=== PATIENT | male | born 1995 | race Caucasian/White ===

== ENCOUNTER 2018-11-03 09:56 | Outpatient (REF) | payer BC, SELFPAY ==
--- NOTE | 2018-11-03 08:45 | SOFT_PTH ---
PATIENT: Kayden Saha LOC: [facility] U#:[id number] AGE/SX: 23/M ROOM: RE11/03/[address]: Mae Ramsey MD : 1995 BED: DIS: 11/03/2018 SPEC #: [id number] RECD: 11/03/18 12:54 STATUS: SISI REQ #: [id number] PARVEZ: 11/03/18 08:[address]: Mae Ramsey DEPT: Surgical Specimen RECD BY: Vickie Pack ENTERED: 11/03/18 12:55 SP TYPE: SOFT OTHR DR: Evelyn Bryan Tissues: 1 - SOFT TISSUE MISC (INC. LIPOMA) 2 - SOFT TISSUE MISC (INC. LIPOMA) Procedures: GROSS AND MICRO LEVEL 3 Comments: [id number]
== END 2018-11-03 10:16 ==
LOC: LBN 09:56
PROVIDERS: PCP Nurse Practitioner Family; Visit Provider Surgery
DX: D17.1 Benign lipomatous neoplasm of skin and subcutaneous tissue of trunk (principal)
CPT/HCPCS: 88304

== ENCOUNTER 2021-11-11 17:13 | Outpatient (REF) | payer SELFPAY ==
[2021-11-11 19:39] LABS: Anion Gap 10.4 mmol/L (3-11); BUN 18 mg/dL (7-18); CO2 27.6 mmol/L (21.0-32.0); CREATININE 1.1 mg/dL (0.70-1.30); Calcium 9.1 mg/dL (8.5-10.1); Calculated LDL 123 mg/dL (<100); Chloride 102 mmol/L (98-107); Cholesterol 234 mg/dL (<200); Glucose 107 mg/dL (74-106); HDL Cholesterol 32 mg/dL (40-60); Potassium 4.3 mmol/L (3.5-5.1); Sodium 140 mmol/L (136-145); TSH (W/Ref FT4) 1.78 uIU/mL (0.36-3.74); Triglyceride 396 mg/dL (<150)
== END 2021-11-11 17:14 | disposition home or self-care (01) ==
LOC: NCHCN 17:13
PROVIDERS: PCP Nurse Practitioner Family; Visit Provider Nurse Practitioner Family
DX: K30 Functional dyspepsia (principal)
CPT/HCPCS: 80048; 80061; 84443

== ENCOUNTER 2022-05-18 00:52 | Emergency (ER) | payer BC, SELFPAY ==
[2022-05-18] VITALS (45 sets, daily range): BP systolic 107–134; BP diastolic 58–80; PULSE 46–74; RESP 10–26; TEMP 36.8; O2SAT 91–100
--- NOTE | 2022-05-18 01:15 | RT.EKG_ITS ---
APPROVED REPORT Exam: Resting ECG Reason for Exam: chest pain Patient Location: E HR:59 bpm ECG Measurements Heart Rate 59 AXIS NJ 156 P 21 QRSd 91 QRS 16 QT 376 T 34 QTc 374 Conclusion Bradycardia with irregular rate...V-rate 51-197, mean < 60 sinus rhythm, normal axis, normal intervals, nonischemic
--- NOTE | 2022-05-18 01:15 | DI.RAD_ITS ---
Exam(s) XR PORTABLE CHEST AP EXAM: XR PORTABLE CHEST AP CLINICAL HISTORY: left sided chest pain TECHNIQUE: 2D digital imaging was performed of the chest. One image was obtained. An AP view was ob tained. COMPARISON: CR CHEST 2 VIEWS PA,LAT from 08/10/2017 FINDINGS: MEDIASTINUM: Normal. HEART: Normal. PULMONARY VASCULATURE: Normal. LUNGS: Clear. PLEURAL SPACE: No pleural effusion or pneumothorax. BONE:Within normal limits for the patient's age. OTHER FINDINGS:Normal. IMPRESSION: No acute pulmonary findings. DATA REPOSITORY: RADIATION DOSE DELIVERED:
--- NOTE | 2022-05-18 01:39 | ED.GENADUL_ITS ---
Discharge Plan Disposition Patient Disposition: HOME Condition: Improving Discharge Details Chief Complaint: SOB Clinical Impression: Chest pain Primary Care Provider: Evelyn Bryan ED Provider: Miko Celestin Home Meds and New Rx's Prescriptions: No Action lactase [Lactaid] 3,000 unit tablet 3,000 unit PO ONCE PRN Rx Instructions: administer with meals and/or snacks famotidine 40 mg tablet 40 mg PO DAILY Discharge Instructions Instructions: Chest Pain (ED) Additional Instructions: Please follow-up with your primary care physician. Please return to the emergency department if you develop any worsening symptoms. Medical Decision Making 27-year-old male no past medical history, low risk heart score, PERC negative, presents with nonexertional left anterior chest pain intermittent nature over the past several hours, associated with subjective shortness of breath, no history of COPD or asthma, no history of thromboembolic phenomenon or coronary artery disease, no recent travel. Lungs clear bilaterally EKG nonischemic normotensive normoxic. Does endorse increased stress around planning an upcoming wedding and around the passing of his uncle from a heart attack at a young age at this facility. No acute distress at this time. Will obtain screening labs cardiac labs, EKG chest x-ray, will trial anxiolysis and GI cocktail. Consider musculoskeletal chest pain versus anxiety versus less likely ACS versus unlikely PE pneumothorax or pneumonia. Disposition likely home with close follow-up pending results and reassessment. 5: 28 patient resting comfortably no acute distress. Feeling better after meds. Labs and imaging unremarkable. Patient has follow-up with primary care physician. Given home care instructions and return precautions. HPI General Date/Time Provider Initiated Documentation: 05/18/22 00:53 . HPI Narrative: 27-year-old male presents with left anterior chest pain over the past several hours, pressure-like in nature, intermittent, nonexertional, denies history of coronary disease or thromboembolic phenomenon in the past. Denies cough fevers chills nausea vomiting leg swelling recent travel or recent surgery. Of note patient endorses increased stress as he is planning a wedding, also continue stress around the of his uncle who at a young age from a heart attack. Related Data Home Medications Medication Instructions Recorded Confirmed famotidine 40 mg tablet 40 mg PO DAILY 12/23/21 05/18/22 lactase 3,000 unit tablet (Lactaid) 3,000 unit PO ONCE PRN 01/20/22 05/18/22 Allergies Allergy/AdvReac Type Severity Reaction Status Date / Time lactose Allergy Unknown Verified 05/18/22 01:54 General Stated Complaint: SOB DARRIN: 3 Review of Systems Narrative: Review of Systems Constitutional: negative Eyes: negative ENT: negative Cardiovascular: Chest pain Respiratory: negative Gastrointestinal: negative : negative Musculoskeletal: negative Skin: negative Neurologic: negative Psych: negative PFSH All Active Problems (Updated 05/18/22 @ 05:29 by Miko Celestin MD) Chest pain (Acute) Gastroesophageal reflux disease (Chronic 05/31/12) Obesity (Chronic) Testicular pain, right (Acute) Left testicular pain (Acute) Hydrocele (Acute) Skin lesion (Acute) Mass of abdomen (Chronic) Dyspepsia (Chronic) Hypopigmented skin lesion (Acute 08/09/14) left lower lip Medical History Headache (05/31/12) Rupture of anterior cruciate ligament (05/31/12) Social History Smoking/Tobacco Use Status: Never Smoking risk assessment performed?: Yes Alcohol Intake: current Alcohol Intake frequency: holidays/special occasions only Drug use: Never Do you feel safe at home: Yes Do you feel safe in your relationship?: Yes Exam Narrative Exam Narrative: Physical Examination General: alert, awake, cooperative, resting comfortably, no acute distress HEENT: normocephalic, atraumatic; PERRL, EOM intact, conjunctiva normal; no nasal discharge; moist mucous membranes, oral and pharyngeal mucosa normal, tolerating secretions Neck: supple, trachea midline; full ROM Chest: normal to inspection Respiratory: normal respiratory effort, speaking in full sentences, clear to auscultation, no wheezing, rales or rhonchi Cardiac: regular rate, regular rhythm, S1S2 intact, no murmurs rubs or gallops GI: abdomen soft, non-tender, non-distended; no palpable mass or hepatosplenomegaly Skin: no lesions, rashes or trauma appreciated Neuro: AAOx3, normal speech, moving all extremities Extremities: No peripheral edema Psych: Appropriate mood and affect Course Vital Signs Vital signs: Vital Signs Temperature 36.8 C 05/18/22 01:16 Pulse 66 05/18/22 01:16 Respiratory Rate 18 05/18/22 01:16 Blood Pressure 134/69 05/18/22 01:16 Pulse Oximetry 100 05/18/22 01:16 Temperature 36.8 C 05/18/22 01:16 Temperature Source Temporal Artery Scan 05/18/22 01:16 Pulse 66 05/18/22 01:16 Respiratory Rate 16 05/18/22 01:31 Respiratory Effort 05/18/22 01:31 Respiratory Depth Normal 05/18/22 01:31 Respiratory Pattern Normal 05/18/22 01:31 Blood Pressure 134/69 05/18/22 01:16 Pulse Oximetry 100 05/18/22 01:16 Oxygen Delivery Method Room Air 05/18/22 01:16 Oxygen Flow Rate 0 05/18/22 01:16 Pain Level 3 05/18/22 01:16 Comment 05/18/22 01:16
[2022-05-18] MEDS: Lidocaine 2% Viscous 15 ML CUP PO (01:50)
[2022-05-18] MEDS: Mylanta Suspension 30 ML CUP PO (01:50)
[2022-05-18] MEDS: LORazepam 20 MG/10 ML VIAL IVP (01:53)
[2022-05-18 02:21] LABS: Abs Immature Grans 0.02 10^3/uL (0.0-0.06); Absolute Basophil Count 0.05 10^3/uL (0.0-0.2); Absolute Eosinophil Count 0.08 10^3/uL (0.0-0.7); Absolute Lymphocyte Count 3.67 10^3/uL (1.2-3.4); Absolute Monocyte Count 0.58 10^3/uL (0.1-0.8); Absolute Neutrophil Count 3.45 10^3/uL (1.2-6.7); Basophils % 0.6; HCT 41.5 % (40.0-50.0); HGB 14.3 g/dL (13.5-17.5); Immature Grans % 0.3; Lymphocytes % 46.8; MCH 30.1 pg (27.0-33.0); MCHC 34.5 % (32.0-36.0); MCV 87 fL (80-95); MPV 11.1 fL (8.0-11.0); Monocytes % 7.4; Neutrophils % 43.9; Platelet Count 231 10^3/uL (130-400); RBC 4.75 10^6/uL (4.36-5.78); RDW 12.7 % (11.8-14.1); WBC 7.85 10^3/uL (4.4-10.8)
[2022-05-18 02:30] LABS: ALT 57 U/L (16-63); AST 20 U/L (15-37); Albumin 4.2 g/dL (3.4-5.0); Alkaline Phosphatase 63 U/L (46-116); Anion Gap 7.4 mmol/L (3-11); BUN 17 mg/dL (7-18); CO2 27.6 mmol/L (21.0-32.0); CREATININE 1.3 mg/dL (0.70-1.30); Calcium 8.9 mg/dL (8.5-10.1); Chloride 101 mmol/L (98-107); Glucose 88 mg/dL (74-106); Potassium 3.5 mmol/L (3.5-5.1); Sodium 136 mmol/L (136-145); Total Protein 7.3 g/dL (6.4-8.2); Troponin I < 50 ng/L (<or=60)
--- NOTE | 2022-05-18 05:24 | DI.VRAD_ITS ---
PROCEDURE INFORMATION: Exam: XR Chest Exam date and time: 05/18/2022 1:59 AM Age: 27 years old Clinical indication: Left-sided; Patient HX: Left sided chest pain TECHNIQUE: Imaging protocol: Radiologic exam of the chest. Views: 1 view. COMPARISON: CR CHEST 2 VIEWS PA,LAT 08/10/2017 11:01 PM FINDINGS: Lungs: The lungs are clear and well aerated bilaterally. No consolidation or pulmonary edema. Pulmonary vasculature is normal in caliber. Pleural spaces: Unremarkable. No pleural effusion or pneumothorax. Heart/Mediastinum: Heart size is normal. Cardiomediastinal contours are stable and satisfactory. Bones/joints: Unremarkable. IMPRESSION: No acute cardiopulmonary abnormality. Dictated and Authenticated by: Shayla Vo MD. Ordering:VICKI Crouch MD
== END 2022-05-18 05:56 | disposition home or self-care (01) ==
PROVIDERS: Emergency Provider Emergency Medicine; PCP Nurse Practitioner Family
DX: R07.9 Chest pain, unspecified (principal); R06.02 Shortness of breath
CPT/HCPCS: 80053; 93005; 96374; 99284; 71045; 84484; 85025; 93010; J3490

== ENCOUNTER 2022-10-26 14:54 | Outpatient (REF) | payer BC, SELFPAY ==
[2022-10-26 18:10] LABS: Abs Immature Grans 0.02 10^3/uL (0.0-0.06); Absolute Basophil Count 0.04 10^3/uL (0.0-0.2); Absolute Eosinophil Count 0.07 10^3/uL (0.0-0.7); Absolute Lymphocyte Count 2.41 10^3/uL (1.2-3.4); Absolute Monocyte Count 0.49 10^3/uL (0.1-0.8); Absolute Neutrophil Count 3.89 10^3/uL (1.2-6.7); Basophils % 0.6; HCT 43.1 % (40.0-50.0); HGB 14.8 g/dL (13.5-17.5); Immature Grans % 0.3; Lymphocytes % 34.8; MCH 30.5 pg (27.0-33.0); MCHC 34.3 % (32.0-36.0); MCV 89 fL (80-95); Monocytes % 7.1; Neutrophils % 56.2; Platelet Count 227 10^3/uL (130-400); RBC 4.86 10^6/uL (4.36-5.78); RDW 13.1 % (11.8-14.1); RDW-SD 42.1 fL; WBC 6.92 10^3/uL (4.4-10.8)
[2022-10-26 18:40] LABS: TSH (W/Ref FT4) 2.45 uIU/mL (0.36-3.74)
== END 2022-10-26 14:55 | disposition home or self-care (01) ==
LOC: NCHCN 14:54
PROVIDERS: PCP Nurse Practitioner Family; Visit Provider Nurse Practitioner Family
DX: G44.229 Chronic tension-type headache, not intractable (principal)
CPT/HCPCS: 84443; 85025